=== PATIENT | female | born 1950 | race Caucasian/White ===

== ENCOUNTER 2016-12-18 14:41 | Outpatient (CLI) | payer MEDICARE, BC | END 2016-12-18 14:42 | disposition home or self-care (01) | DRG 552 | LOC: CONVCARE 14:41 | PROVIDERS: ATTEND Orthopaedic Surgery | DX: M53.86 Other specified dorsopathies, lumbar region (principal); M79.672 Pain in left foot | CPT/HCPCS: 72120 ==